=== PATIENT | male | born 1995 | race African-American/Black ===

== ENCOUNTER 2019-01-09 23:15 | Emergency (ER) | payer MEDICAID ==
[~2019-01-09] VITALS: Ht 185.4 cm; Wt 88.5 kg
--- NOTE | 2019-01-09 23:22 | NUR ---
Patient not in the waiting room.
--- NOTE | 2019-01-09 23:30 | NUR ---
ED Nurse Note: Aracelis walked into ED rectal bleeding that has been an onging issue for 2 days now. aracelis states he voided then had a mixture of clotty blood. patient denies any intercourse in that area. complains of 10/10 pain. patient is alert and oriented x4, ambulatory with a steady gait, VSS
[2019-01-09 23:32] VITALS: BP 156/97
[2019-01-10] MEDS ORDERED: Lidocaine HCl 2% Jelly 6ml Tube TOPIC ONE
[2019-01-10] MEDS ORDERED: sitz bath (00:03)
[2019-01-10] MEDS ORDERED: LIDOCAINE HC RC (00:03)
[2019-01-10] MEDS ORDERED: PERI-COLACE1 EA ORAL (00:04)
--- NOTE | 2019-01-10 00:06 | Emergency Room Report ---
History of Present Illness General Chief Complaint: General Complaint Source: Patient Present Illness HPI HPI: 23-year-old otherwise healthy male presents for evaluation of rectal pain and bleeding. Symptoms have been present for approximately 2 days. He notes some recent constipation and increased straining while using the bathroom and noticed some small amount of bright red blood in the toilet over the past 2 days. He notes pain with defecation and somewhat worsening pain just with ambulation and sitting. No prior history of hemorrhoids. No family history of colorectal cancer. He has no history of ulcerative colitis, Crohn's or other GI abnormalities. No prior episodes of hemorrhoids or rectal bleeding otherwise. He denies abdominal pain, dysuria, hematuria, flank pain, fevers, vomiting, nausea, chest pain, shortness of breath, URI symptoms or other change in his health otherwise PMH: Denies PSH: Sinus surgery as a child Allergies: Denies Social Hx: Denies tobacco, alcohol or drug use Allergies: Coded Allergies: GUAIFENESIN (Verified Allergy, Unknown, 01/09/19) Nursing Documentation-PMH Past Medical History: No Stated History Review of Systems All Other Systems: negative except mentioned in HPI Physical Exam Vital Signs Date Time Temp Pulse Resp B/P (MAP) Pulse Ox O2 Delivery O2 Flow Rate FiO2 01/09/19 23:24 97.5 55 18 156/97 (116) 97 Room Air General: Awake and alert, no acute distress Resp: Normal work of breathing. GI: Abdomen is soft, nondistended. Nontender. No masses appreciated. Rectal exam shows a 1 x 1 cm nonthrombosed hemorrhoid retreating at the 9 o'clock position. No bleeding. Skin: Intact. No abrasions, laceration or rash over the exposed skin MSK: Normal tone and bulk. Moving all extremities. No obvious deformity. Neuro: Awake and alert. Mentating appropriately. Medical Decision Making Diagnostic Impression: Primary Impression: Acute hemorrhoid Additional Impression: Constipation ER Course This is a 23-year-old male who presents for evaluation of 2 days rectal pain and bleeding in the setting of recent constipation. Physical exam consistent with nonthrombosed hemorrhoid which we will treat with topical analgesic in the emergency department. He will be discharged home with prescription for stool softener, topical steroids/anesthetic ointment, sitz bath's. He will be referred to primary care clinics in the area as he does not currently have a PMD and he was given the name of a general surgeon if his symptoms persist greater than a month. We discussed reasons to return to the emergency department. He understands and agrees with this treatment plan will be discharged home. Please note that this report is being documented using [employer] technology. This can lead to erroneous entry secondary to incorrect interpretation by the dictating instrument. Last Vital Signs Date Time Temp Pulse Resp B/P (MAP) Pulse Ox O2 Delivery O2 Flow Rate FiO2 01/09/19 23:32 97.5 55 18 156/97 97 Room Air Disposition: HOME, SELF-CARE Condition: Stable Scripts Docusate Sod/Senna (Docusate Sodium-Senna Tablet) 1 Each Tablet 1 CAP ORAL TWICE A DAY for 7, #14 CAP 0 Refills Prov: Jules Zazueta MD 01/10/19 [sitz bath] No Conflict Check 1 KIT Prov: Jules Zazueta MD 01/10/19 Hydrocortisone/Lidocaine/Aloe (LIDOCAINE-HC 3-2.5% GEL KIT) 1 Each Kit 1 EACH RC BID for 5 Days, #1 KIT Prov: Jules Zazueta MD 01/10/19 Referrals: [facility] Patient Instructions: Hemorrhoids, [id number] Additional Instructions: Your evaluated and treated for hemorrhoids in the emergency department. Apply the topical cream and use the sitz bath as instructed to help with pain and to reduce the size of the hemorrhoid. Primary care clinics free to follow-up with have been included in your discharge paperwork as well as the name of the general surgeon that if your symptoms do not improve in the next month you can contact to schedule an office visit for reevaluation. Also prescribed a stool softener for your constipation. If you have significant bleeding, worsening pain, are unable to pass a bowel movement please return to the emergency department for reevaluation or if you have any other sudden and severe changes in your health. Jules Zazueta MD Jan 10, 2019 00:06
[2019-01-10 00:16] VITALS: BP 138/88
--- NOTE | 2019-01-10 00:17 | NUR ---
ER DISCHARGE NOTE: Patient is cleared to be discharged per ERMD, pt is aox4, on room air, with stable vital signs. pt was given dc and prescription instructions, pt was able to verbalize understanding, pt id band removed without complications. pt is able to ambulate with steady gait. pt took all belongings.
== END 2019-01-10 00:20 | disposition home or self-care (01) ==
LOC: EMR 23:45
DX: K64.9 Unspecified hemorrhoids (principal); K59.00 Constipation, unspecified; Z88.8 Allergy status to other drugs, medicaments and biological substances
CPT/HCPCS: 99282